=== PATIENT | female | born 1970 | race Caucasian/White ===

== ENCOUNTER 2017-10-07 10:55 | Emergency (ER) | payer SELFPAY, OTHER, MEDICAID ==
[2017-10-07 12:24] LABS: URINE BLOOD (Dip) POC 2+ (NEGATIVE); URINE GLUCOSE (Dip) POC Negative (NEGATIVE); URINE KETONES (Dip) POC Negative (NEGATIVE); URINE LEUKOCYTE EST (Dip) POC Negative (NEGATIVE); URINE NITRITE (Dip) POC Negative (NEGATIVE); URINE TOTAL PROTEIN POC Negative (NEGATIVE)
[2017-10-07 12:24] LABS: URINE PH (Dip) POC 5.5 (5.0-8.5)
== END 2017-10-07 13:44 | disposition home or self-care (01) ==
LOC: FTE 10:55
DX: N92.4 Excessive bleeding in the premenopausal period (principal); R10.2 Pelvic and perineal pain
CPT/HCPCS: 76856; 81003; 81025; 99284-25

== ENCOUNTER 2017-12-08 10:57 | Emergency (ER) | payer OTHER ==
[2017-12-08 12:35] LABS: ADD MAN DIFF? NO
[2017-12-08 13:10] LABS: WHITE BLOOD COUNT 7.7 10^3/ul (4.8-10.8)
[2017-12-08 13:10] LABS: ABNORMAL IP MESSAGE 1; BASOPHILS % 0.5 % (0.0-2.0); EOSINOPHILS # 0.1 10^3/ul (0.0-0.5); EOSINOPHILS % 1.7 % (0.0-7.0); HEMATOCRIT 25.7 % (37.0-47.0); HEMOGLOBIN 7.1 g/dl (12.0-16.0); LYMPHOCYTES # 2.1 10^3/ul (0.8-2.9); LYMPHOCYTES % 27.1 % (15.0-51.0); MEAN CORPUSCULAR HEMOGLOBIN 19.2 pg (29.0-33.0); MEAN CORPUSCULAR HGB CONC 27.6 g/dl (32.0-37.0); MEAN CORPUSCULAR VOLUME 69.5 fl (82.0-101.0); MEAN PLATELET VOLUME 9.4 fl (7.4-10.4); MONOCYTE # 0.6 10^3/ul (0.3-0.9); NEUTROPHIL # 4.8 10^3/ul (1.6-7.5); NEUTROPHILS % 62.2 % (39.0-77.0); NUCLEATED RED BLOOD CELLS% 0.3 /100WBC (0.0-0.0); PLATELET COUNT 360 10^3/UL (140-415); RED CELL DISTRIBUTION WIDTH 18.6 % (11.5-14.5)
[2017-12-08 13:17] LABS: POSITIVE DIFF @See below
[2017-12-08] MEDS: SOD CHLORIDE 0.9% 250 ML IV (13:26)
[2017-12-08 13:29] LABS: INR 1.01; PROTIME 13.4 Sec (11.9-14.9)
[2017-12-08 13:30] LABS: PARTIAL THROMBOPLASTIN TIME 23.9 Sec (25.0-35.0)
[2017-12-08 13:32] LABS: ANION GAP 11 (8-16); BLOOD UREA NITROGEN 9 mg/dl (7-20); CALCIUM 8.9 mg/dl (8.4-10.2); CARBON DIOXIDE 26 mmol/L (21-31); CHLORIDE 103 mmol/L (97-110); CREATININE 0.57 mg/dl (0.44-1.00); GLUCOSE 96 mg/dl (70-220); LIPASE 90 U/L (23-300); POTASSIUM 3.7 mmol/L (3.5-5.1); SODIUM 136 mmol/L (135-144)
[2017-12-08 14:35] LABS: IMMEDIATE SPIN CROSSMATCH 1 1
== END 2017-12-08 17:46 | disposition home or self-care (01) ==
LOC: E/R 10:57
PROVIDERS: Pediatrics
DX: N92.1 Excessive and frequent menstruation with irregular cycle (principal)
CPT/HCPCS: 36415; 36430; 80048; 81025; 83690; 85025; 85610; 85730; 86850; 86900; 86901; 86920; 99285-25

== ENCOUNTER 2018-02-13 05:45 | Emergency (ER) | payer OTHER ==
[2018-02-13] MEDS: ONDANSETRON 4 MG INJ IV (06:25)
[2018-02-13] MEDS: morphine 4 MG/ML VIAL IV (06:25)
[2018-02-13 06:59] LABS: ADD MAN DIFF? NO
[2018-02-13 07:02] LABS: ABNORMAL IP MESSAGE 1; BASOPHILS % 0.4 % (0.0-2.0); EOSINOPHILS # 0.2 10^3/ul (0.0-0.5); EOSINOPHILS % 4.6 % (0.0-7.0); LYMPHOCYTES # 1.7 10^3/ul (0.8-2.9); LYMPHOCYTES % 34.2 % (15.0-51.0); MEAN CORPUSCULAR HEMOGLOBIN 18.3 pg (29.0-33.0); MEAN CORPUSCULAR HGB CONC 26.2 g/dl (32.0-37.0); MEAN CORPUSCULAR VOLUME 69.8 fl (82.0-101.0); MEAN PLATELET VOLUME 9.5 fl (7.4-10.4); MONOCYTE # 0.5 10^3/ul (0.3-0.9); MONOCYTES % 9.3 % (0.0-11.0); NEUTROPHIL # 2.5 10^3/ul (1.6-7.5); NEUTROPHILS % 51.1 % (39.0-77.0); PLATELET COUNT 342 10^3/UL (140-415); RED BLOOD COUNT 3.01 10^6/ul (4.20-5.40); RED CELL DISTRIBUTION WIDTH 21.4 % (11.5-14.5)
[2018-02-13 07:16] LABS: HEMOGLOBIN 5.5 g/dl (12.0-16.0); POSITIVE DIFF @See below
[2018-02-13 07:26] LABS: ALANINE AMINOTRANSFERASE 30 IU/L (13-69); ALBUMIN 3.2 g/dl (3.3-4.9); ALBUMIN/GLOBULIN RATIO 0.82; ALKALINE PHOSPHATASE 58 IU/L (42-121); ANION GAP 11 (8-16); ASPARTATE AMINO TRANSFERASE 29 IU/L (15-46); BILIRUBIN,INDIRECT 0.4 mg/dl (0-1.1); BILIRUBIN,TOTAL 0.4 mg/dl (0.2-1.3); BLOOD UREA NITROGEN 10 mg/dl (7-20); CALCIUM 8.9 mg/dl (8.4-10.2); CARBON DIOXIDE 27 mmol/L (21-31); CHLORIDE 105 mmol/L (97-110); CREATININE 0.53 mg/dl (0.44-1.00); GLUCOSE 111 mg/dl (70-220); POTASSIUM 3.5 mmol/L (3.5-5.1); SODIUM 139 mmol/L (135-144); TOTAL PROTEIN 7.1 g/dl (6.1-8.1)
[2018-02-13 07:35] LABS: TROPONIN-I < 0.012 ng/ml (0.000-0.120)
[2018-02-13 08:05] LABS: IMMEDIATE SPIN CROSSMATCH 1 3
[2018-02-13] MEDS: ACETAMINOPHEN 325/HYDROC 7.5 15 ML CUP PO (08:12)
[2018-02-13 08:15] LABS: ANISOCYTOSIS 2+ (0-0); BAND NEUTROPHILS #M 0.1 10^3/ul (0.0-0.6); BAND NEUTROPHILS % (M) 2 % (0-4); EOSINOPHILS % (M) 6 % (0-7); HYPOCHROMASIA 1+ (0-0); LYMPHOCYTES #M 1.3 10^3/ul (0.8-2.9); LYMPHOCYTES % (M) 27 % (15-51); MICROCYTOSIS 2+ (0-0); MONOCYTE #M 0.3 10^3/ul (0.3-0.9); MONOCYTES % (M) 6 % (0-11); OVALOCYTES 1+ (0-0); PLATELET ESTIMATE NORMAL; POIKILOCYTOSIS 1+ (0-0); POLYCHROMASIA 1+ (0-0); REACTIVE LYMPHOCYTES% (M) 1 % (0-0); SCHISTOCYTES 1+ (0-0); SEG NEUT #M 2.9 10^3/ul (1.6-7.5); SEGMENTED NEUTROPHILS (M) % 58 % (39-77); SMUDGE%M 43 % (0-0); TARGET CELLS 1+ (0-0)
== END 2018-02-13 13:59 | disposition home or self-care (01) ==
LOC: E/R 05:45
PROVIDERS: Pediatrics
DX: D64.9 Anemia, unspecified (principal); N92.0 Excessive and frequent menstruation with regular cycle; R07.89 Other chest pain
CPT/HCPCS: 36415; 36430; 71045; 80053; 84484; 85025; 86850; 86900; 86901; 86920; 93005; 99291-25